=== PATIENT | male | born 1950 | race Two or more races ===

== ENCOUNTER 2017-10-12 05:54 | Observation (INO) | payer MEDICARE, MEDICAID ==
[~2017-10-12] VITALS: Ht 157.5 cm; Wt 93.5 kg
[2017-10-12] MEDS ORDERED: ONDANSETRON 2MG/ML, 2ML IVPush ONE (06:30)
[2017-10-12] MEDS ORDERED: ONDANSETRON 2MG/ML, 2ML ONE (06:37)
[2017-10-12] MEDS ORDERED: MORPHINE SULFATE 4 MG/ML, 1ML ONE ×2 (06:37→07:51)
[2017-10-12] MEDS: MORPHINE SULFATE 4 MG/ML, 1ML IVPush PRN ×2 (06:38→07:53)
[2017-10-12 06:41] LABS: BASOPHILS # (AUTO) 0.02 x10^3/uL (0-0.1); BASOPHILS % (AUTO) 0 % (0-1); EOSINOPHILS # (AUTO) 0.13 x10^3/uL (0-0.4); EOSINOPHILS % (AUTO) 2 % (1-7); LYMPHOCYTES % (AUTO) 14 % (22-44); MD NO; MEAN CORPUSCULAR HEMOGLOBIN 29.6 pg (27.5-34.5); MEAN CORPUSCULAR HGB CONC 33.6 g/dL (33.2-36.2); MEAN CORPUSCULAR VOLUME 88.2 fL (81-97); MEAN PLATELET VOLUME 8.2 fL (7.4-10.4); MONOCYTES # (AUTO) 0.48 x10^3/uL (0.2-0.8); MONOCYTES % (AUTO) 6 % (2-9); NEUTROPHILS # (AUTO) 6.79 x10^3/uL (1.8-6.8); NEUTROPHILS % (AUTO) 79 % (42-75); PLATELET COUNT 184 x10^3/uL (130-400); RED CELL DISTRIBUTION WIDTH 12.5 % (9.4-14.8)
[2017-10-12 06:53] LABS: ALBUMIN 3.6 g/dL (3.4-5.0); ANION GAP 7 mmol/L (5-15); CALCIUM 8.7 mg/dL (8.5-10.1); CHLORIDE 109 mmol/L (98-107); CREATININE 1.06 mg/dL (0.7-1.3)
[2017-10-12 06:54] LABS: MICROSCOPIC INDICATED
[2017-10-12] MEDS ORDERED: KETOROLAC 60 MG/2 ML IVPush ONE (07:00)
[2017-10-12 07:02] LABS: CULTURE INDICATED? NO
[2017-10-12] MEDS ORDERED: KETOROLAC 30 MG/1 ML ONE (07:09)
[2017-10-12] MEDS ORDERED: TEMAZEPAM 15 MG CAPSULE PO PRN (10:30)
[2017-10-12] MEDS ORDERED: GLUCAGON 1 MG IM PRN (10:30)
[2017-10-12] MEDS ORDERED: LABETALOL 5MG/ML, 20ML IVPush PRN (10:30)
[2017-10-12] MEDS ORDERED: ONDANSETRON ODT 4 MG PO PRN (10:30)
[2017-10-12] MEDS ORDERED: ONDANSETRON 2MG/ML, 2ML IVPush PRN (10:30)
[2017-10-12] MEDS ORDERED: DEXTROSE 4 GM TAB.CHEW PO PRN (10:30)
[2017-10-12] MEDS ORDERED: DEXTROSE 50%, 50ML SYRINGE IVPush PRN (10:30)
[2017-10-12] MEDS ORDERED: POLYETHYLENE GLYCOL 17 GM PACKET PO PRN (10:30)
[2017-10-12] MEDS ORDERED: ACETAMINOPHEN 325 MG TABLET PO PRN (10:30)
[2017-10-12] MEDS ORDERED: OXYcodone IR 5MG TABLET PO PRN (10:30)
[2017-10-12] MEDS ORDERED: INSU100V8 SQ (10:35)
[2017-10-12] MEDS ORDERED: ENAL20TA PO (10:35)
[2017-10-12] MEDS ORDERED: METF500T4 PO (10:35)
[2017-10-12] MEDS ORDERED: SERT100T5 PO (10:35)
[2017-10-12] MEDS ORDERED: ASPI-515 PO (10:35)
[2017-10-12] MEDS ORDERED: ATOR-2 PO (10:35)
[2017-10-12 11:22] VITALS: BP 121/68
[2017-10-12] MEDS: SODIUM CHLORIDE 0.9% 1,000 ML IV SCH ×2 (11:24→20:26)
[2017-10-12] MEDS: SODIUM CHLORIDE FLUSH 10ML SYR IVF SCH ×2 (11:24→20:26)
[2017-10-12 12:20] LABS: HEMOGLOBIN A1C 10.4 % (4.2-6.3)
[2017-10-12] MEDS: INSULIN LISPRO 100 UNITS/ML, PEN SQ-INSULIN SCH ×3 (12:37→20:26)
[2017-10-12] MEDS: SERTRALINE 100MG TABLET PO SCH (12:37)
[2017-10-12] MEDS: morphine SULFATE 10 MG/ML, 1ML IVPush PRN (18:05)
[2017-10-12 18:47] VITALS: BP 108/61
[2017-10-12] MEDS: ATORVASTATIN 20 MG TABLET PO SCH (20:15)
[2017-10-12] MEDS: INSULIN GLARGINE 100 UNITS/ML, PEN SQ-INSULIN SCH (20:16)
[2017-10-13 01:20] VITALS: BP 108/53
[2017-10-13 05:58] LABS: BASOPHILS # (AUTO) 0.02 x10^3/uL (0-0.1); BASOPHILS % (AUTO) 0 % (0-1); EOSINOPHILS # (AUTO) 0.17 x10^3/uL (0-0.4); EOSINOPHILS % (AUTO) 2 % (1-7); LYMPHOCYTES # (AUTO) 1.41 x10^3/uL (1-3.4); LYMPHOCYTES % (AUTO) 20 % (22-44); MD NO; MEAN CORPUSCULAR HEMOGLOBIN 29.7 pg (27.5-34.5); MEAN CORPUSCULAR HGB CONC 33.7 g/dL (33.2-36.2); MEAN CORPUSCULAR VOLUME 87.9 fL (81-97); MEAN PLATELET VOLUME 8.7 fL (7.4-10.4); MONOCYTES # (AUTO) 0.56 x10^3/uL (0.2-0.8); MONOCYTES % (AUTO) 8 % (2-9); NEUTROPHILS # (AUTO) 5.01 x10^3/uL (1.8-6.8); NEUTROPHILS % (AUTO) 70 % (42-75); PLATELET COUNT 157 x10^3/uL (130-400); RED CELL DISTRIBUTION WIDTH 12.5 % (9.4-14.8)
[2017-10-13 06:06] LABS: ANION GAP 9 mmol/L (5-15); CALCIUM 7.6 mg/dL (8.5-10.1); CHLORIDE 108 mmol/L (98-107)
[2017-10-13 06:07] LABS: CREATININE 1.01 mg/dL (0.7-1.3)
[2017-10-13 06:57] VITALS: BP 112/60
[2017-10-13] MEDS: INSULIN LISPRO 100 UNITS/ML, PEN SQ-INSULIN SCH ×4 (07:15→20:42)
[2017-10-13] MEDS: morphine SULFATE 10 MG/ML, 1ML IVPush PRN (08:05)
[2017-10-13] MEDS: SODIUM CHLORIDE FLUSH 10ML SYR IVF SCH ×2 (08:05→20:33)
[2017-10-13] MEDS: SERTRALINE 100MG TABLET PO SCH (09:00)
[2017-10-13] MEDS: LISINOPRIL 10 MG TABLET PO SCH (09:00)
[2017-10-13] MEDS ORDERED: MIDAZOLAM 1 MG/ML, 2ML ONE (09:41)
[2017-10-13] MEDS ORDERED: FENTANYL PF 250 MCG/5ML ONE (09:41)
[2017-10-13] MEDS ORDERED: ROCURONIUM 10MG/ML,5ML ONE (09:44)
[2017-10-13] MEDS ORDERED: PROPOFOL 10 MG/ML, 20ML ONE (09:44)
[2017-10-13] MEDS ORDERED: NEOSTIGMINE 1 MG/ML, 10ML ONE (09:45)
[2017-10-13] MEDS ORDERED: GLYCOPYRROLATE 0.4 MG/2 ML, 2ML ONE ×3 (09:45→11:53)
[2017-10-13] MEDS ORDERED: ONDANSETRON 2MG/ML, 2ML IVPush PRN (10:00)
[2017-10-13] MEDS ORDERED: LABETALOL 5MG/ML, 20ML IV PRN (10:00)
[2017-10-13] MEDS ORDERED: hydrALAzine 20 MG/ML, 1ML IV PRN (10:00)
[2017-10-13] MEDS ORDERED: FENTANYL PF 100 MCG/2ML IV PRN (10:00)
[2017-10-13] MEDS ORDERED: PROMETHAZINE 12.5 MG SUPP PR PRN (10:00)
[2017-10-13] MEDS ORDERED: morphine SULFATE 10 MG/ML, 1ML IV PRN (10:00)
[2017-10-13] MEDS ORDERED: PROMETHAZINE 25 MG/ML, 1ML IV PRN (10:00)
[2017-10-13] MEDS ORDERED: OXYcodone 5 MG/5 ML ORAL.SOL UDC PO PRN (10:00)
[2017-10-13] MEDS ORDERED: HYDROmorphone 1 MG/ML, 1ML IV PRN (10:00)
[2017-10-13] MEDS ORDERED: CIPROFLOXACIN/PMX 400MG/200ML 200 ML ONE (11:01)
[2017-10-13] MEDS ORDERED: MEPERIDINE/PF 25MG/0.5ML ONE (12:34)
[2017-10-13] MEDS ORDERED: OXYcodone 5 MG/5 ML ORAL.SOL UDC ONE (12:35)
[2017-10-13] MEDS: MEPERIDINE/PF 25MG/0.5ML IVPush PRN ×2 (12:37→12:52)
[2017-10-13 14:25] VITALS: BP 116/62
[2017-10-13 19:07] VITALS: BP 117/63
[2017-10-13] MEDS: ATORVASTATIN 20 MG TABLET PO SCH (20:33)
[2017-10-13] MEDS: INSULIN GLARGINE 100 UNITS/ML, PEN SQ-INSULIN SCH (20:50)
[2017-10-14 01:35] VITALS: BP 113/57
[2017-10-14] MEDS: morphine SULFATE 10 MG/ML, 1ML IVPush PRN ×2 (04:25→08:22)
[2017-10-14 07:00] VITALS: BP 123/63
[2017-10-14] MEDS ORDERED: MORPHINE SULFATE 4 MG/ML, 1ML ONE (07:37)
[2017-10-14] MEDS: INSULIN LISPRO 100 UNITS/ML, PEN SQ-INSULIN SCH ×4 (08:21→21:00)
[2017-10-14] MEDS: LISINOPRIL 10 MG TABLET PO SCH (08:22)
[2017-10-14] MEDS: SERTRALINE 100MG TABLET PO SCH (08:22)
[2017-10-14] MEDS: SODIUM CHLORIDE FLUSH 10ML SYR IVF SCH ×2 (08:22→21:00)
[2017-10-14] MEDS: IBUPROFEN 200 MG TABLET PO PRN ×2 (10:21→16:50)
[2017-10-14] MEDS: TAMSULOSIN 0.4 MG CAP.ER.24H PO SCH (10:21)
[2017-10-14] MEDS: PHENAZOPYRIDINE 100 MG TABLET PO SCH ×3 (10:21→21:00)
[2017-10-14 12:15] VITALS: BP 108/58
[2017-10-14 19:00] VITALS: BP 99/57
[2017-10-14] MEDS: ATORVASTATIN 20 MG TABLET PO SCH (21:14)
[2017-10-14] MEDS: INSULIN GLARGINE 100 UNITS/ML, PEN SQ-INSULIN SCH (21:32)
[2017-10-15 01:40] VITALS: BP 113/63
[2017-10-15 04:48] LABS: BASOPHILS # (AUTO) 0.01 x10^3/uL (0-0.1); BASOPHILS % (AUTO) 0 % (0-1); EOSINOPHILS % (AUTO) 3 % (1-7); LYMPHOCYTES # (AUTO) 1.24 x10^3/uL (1-3.4); LYMPHOCYTES % (AUTO) 22 % (22-44); MD NO; MEAN CORPUSCULAR HGB CONC 34.1 g/dL (33.2-36.2); MEAN CORPUSCULAR VOLUME 87.8 fL (81-97); MEAN PLATELET VOLUME 8.5 fL (7.4-10.4); MONOCYTES # (AUTO) 0.48 x10^3/uL (0.2-0.8); MONOCYTES % (AUTO) 8 % (2-9); NEUTROPHILS # (AUTO) 3.76 x10^3/uL (1.8-6.8); NEUTROPHILS % (AUTO) 66 % (42-75); PLATELET COUNT 165 x10^3/uL (130-400); RED BLOOD COUNT 4.75 x10^6/uL (4.38-5.82); RED CELL DISTRIBUTION WIDTH 12.8 % (9.4-14.8)
[2017-10-15 05:00] LABS: ANION GAP 7 mmol/L (5-15); CALCIUM 8.2 mg/dL (8.5-10.1); CHLORIDE 110 mmol/L (98-107)
[2017-10-15 05:01] LABS: CREATININE 0.95 mg/dL (0.7-1.3)
[2017-10-15 07:00] VITALS: BP 107/55
[2017-10-15] MEDS: INSULIN LISPRO 100 UNITS/ML, PEN SQ-INSULIN SCH ×2 (07:00→11:00)
[2017-10-15] MEDS ORDERED: TAMS-11 PO (08:40)
[2017-10-15] MEDS ORDERED: PHEN-582 PO (08:40)
[2017-10-15] MEDS ORDERED: PHEN100T90 PO (08:40)
[2017-10-15] MEDS: PHENAZOPYRIDINE 100 MG TABLET PO SCH (09:37)
[2017-10-15] MEDS: SERTRALINE 100MG TABLET PO SCH (09:37)
[2017-10-15] MEDS: TAMSULOSIN 0.4 MG CAP.ER.24H PO SCH (09:38)
[2017-10-15] MEDS: IBUPROFEN 200 MG TABLET PO PRN (09:38)
[2017-10-15] MEDS: LISINOPRIL 10 MG TABLET PO SCH (09:38)
[2017-10-15] MEDS: SODIUM CHLORIDE FLUSH 10ML SYR IVF SCH (09:38)
== END 2017-10-15 11:56 | disposition home or self-care (01) ==
LOC: ED 07:15 → INTOOBSV 09:21 → EDIP 09:21 → 3NE 10:47 → DCLOUNGE 10-15 11:18
PROVIDERS: ADMIT Internal Medicine; ATTEND Internal Medicine
DX: N13.2 Hydronephrosis with renal and ureteral calculous obstruction (principal); K57.30 Diverticulosis of large intestine without perforation or abscess without bleeding; E78.5 Hyperlipidemia, unspecified; E86.0 Dehydration; E11.9 Type 2 diabetes mellitus without complications; I10 Essential (primary) hypertension; F32.9 Major depressive disorder, single episode, unspecified; N28.9 Disorder of kidney and ureter, unspecified
CPT/HCPCS: 36415; 52332; 52344; 74176; 80048; 81001; 82040; 82962; 83036; 85025; 96372; 96374; 96375; 96376; 99285; C1726; C1758; C1769; C2617; C2625; G0378; J0744; J1815; J1885; J2175; J2250; J2270; J2405; J2704; J2710; J3010; J7030